=== PATIENT | female | born 2000 | race African-American/Black ===

== ENCOUNTER 2020-10-03 22:58 | Emergency (ER) | payer MEDICAID, SELFPAY ==
[2020-10-03] MEDS ORDERED: Acetaminophen 500 MG TAB ONE (23:25)
== END 2020-10-03 23:28 | disposition home or self-care (01) ==
LOC: NAV ERS 22:58
DX: R51.9 Headache, unspecified (principal)
CPT/HCPCS: 99281

== ENCOUNTER 2021-09-22 21:41 | Emergency (ER) | payer SELFPAY | END 2021-09-22 23:55 | disposition home or self-care (01) | LOC: NAV ERS 21:41 | DX: S83.91XA Sprain of unspecified site of right knee, initial encounter (principal); W18.30XA Fall on same level, unspecified, initial encounter; Y93.41 Activity, dancing ==

== ENCOUNTER 2022-04-08 16:32 | Emergency (ER) | payer SELFPAY ==
[2022-04-08] MEDS ORDERED: Acetaminophen 500 MG TAB ONE (17:12)
== END 2022-04-08 17:20 | disposition home or self-care (01) ==
LOC: NAV ERS 16:32
DX: H92.01 Otalgia, right ear (principal)
CPT/HCPCS: 99282